=== PATIENT | male | born 1990 | race Caucasian/White ===

== ENCOUNTER 2017-07-25 13:58 | Emergency (ER) | payer SELFPAY ==
[~2017-07-25] VITALS: Ht 185.4 cm; Wt 78.5 kg
[~2017-07-25 13:58] MED LIST: BACT800T5 PO; CEPH500
[2017-07-25 14:08] VITALS: BP 121/73; PULSE 64; RESP 16; TEMP 98.4; O2SAT 99
[2017-07-25] MEDS ORDERED: BENZ100 PO (15:16)
[2017-07-25] MEDS ORDERED: VENTAER INH (15:16)
--- NOTE | 2017-07-25 15:39 | PD ---
HPI Chief Complaint: Cold / Flu Symptoms Time Seen by Provider: 15:02 Travel History International Travel<30 days: No Contact w/Intl Traveler<30days: No Traveled to known affect area: No History of Present Illness HPI 27-year-old male presents to the emergency room for evaluation of mildly productive cough, congestion, sore throat for the past 6 days. States it started off as cold symptoms but the cough has persisted. He has associated pleuritic chest pain. He has been taking [id number] medications without significant relief in symptoms. No objective fevers. No chronic medical conditions or daily medications. PFSH Past Medical History Diminished Hearing: No Social History Alcohol Use: No Tobacco Use: No Substance Use: Yes (MARIJUANA) Allergies-Medications (Allergen,Severity, Reaction): Coded Allergies: No Known Allergies (Verified Adverse Reaction, Unknown, 07/25/17) Reported Meds & Prescriptions Reported Meds & Active Scripts Active Ventolin Hfa 18 GM Inh (Albuterol Sulfate) 90 Mcg/Act Aer 2 Puff INH Q6H PRN Tessalon Perles (Benzonatate) 100 Mg Cap 100 Mg PO TID PRN 5 Days Review of Systems Except as stated in HPI: all other systems reviewed are Neg Physical Exam Narrative GENERAL: Well-nourished, well-developed patient. SKIN: Focused skin assessment warm/dry. HEAD: Normocephalic. EYES: No scleral icterus. No injection or drainage. ENT: Mucosa pink and moist. No erythema or exudates. No uvular edema. No uvular , palatal, or tonsillar deviation. Airway patent. Nasal turbinates appear normal without nasal blood, purulent drainage or septal hematoma. EARS: Bilateral pinnae and external canals appear within normal limits. Bilateral tympanic membranes without erythema, dullness or perforation. NECK: Supple, trachea midline. No JVD or lymphadenopathy. CARDIOVASCULAR: Regular rate and rhythm without murmurs, gallops, or rubs. RESPIRATORY: Breath sounds equal bilaterally. No accessory muscle use. Wheezing in the left lung field that cleared spontaneously. Data Data Last Documented VS Vital Signs Date Time Temp Pulse Resp B/P (MAP) Pulse Ox O2 Delivery O2 Flow Rate FiO2 07/25/17 14:08 98.4 64 16 121/73 (89) 99 Orders Orders Ed Discharge Order (07/25/17 15:39) MDM Medical Decision Making Medical Screen Exam Complete: Yes Emergency Medical Condition: Yes Medical Record Reviewed: Yes Differential Diagnosis Bronchitis, pneumonia, URI, influenza Narrative Course 27-year-old male presents to the emergency room for evaluation of cold and flu symptoms for the past 6 days. Patient is afebrile and well-appearing in the emergency room. Vital signs stable. Resting comfortably. Coughing infrequently. Lung sounds clear and equal bilaterally. Patient is also noted to be treated for flu so testing was not performed. No evidence of bacterial infection. This is viral URI. Patient told to take [id number] medication use and discharged with prescription for Tessalon Perles and albuterol. Told to return for worsening symptoms. He understands and agrees to plan. Diagnosis Primary Impression: Viral upper respiratory tract infection with cough Referrals: Mailroom Coordinator Departure Forms: Tests/Procedures, Work Release Enter return to work date: Jul 26, 2017 Additional Instructions: Take medications as directed. Follow-up the primary care physician. Return for worsening symptoms. Med/Other Pt SpecificInfo: Prescription(s) given Scripts Albuterol 18 GM Inh (Ventolin Hfa 18 GM Inh) 90 Mcg/Act Aer 2 PUFF INH Q6H Y for SHORTNESS OF BREATH, #1 INHALER 0 Refills Prov: Chance Villatoro MD 07/25/17 Benzonatate (Tessalon Perles) 100 Mg Cap 100 MG PO TID Y for COUGH for 5 Days, CAP 0 Refills Prov: Chance Villatoro MD 07/25/17 Disposition: 01 DISCHARGE HOME Condition: Stable Lexii Black Jul 25, 2017 15:39
== END 2017-07-25 16:00 | disposition home or self-care (01) ==
LOC: PHEFT 13:58
DX: J06.9 Acute upper respiratory infection, unspecified (principal)
CPT/HCPCS: 99283